=== PATIENT | female | born 1960 | race Caucasian/White ===

== ENCOUNTER → 2017-08-22 | Outpatient (CLI) | payer OTHER, MEDICARE ==
[~2017-08-22] MED LIST: CELEBREX 100MG100 MG PO; DILAUDID2 MG PO; IRON TABLETS325 MG PO; MULTI VITAMINS1 TAB PO; NOMEDS; PREMARIN1.25 MG PO; PREMPRO 0.3 MG-1 TAB PO
--- NOTE | 2017-08-31 11:42 | RADIOLOGY REPORT PS360 ---
DIG MAMM-DX WHIT W/CAD ORDERING PHYSICIAN : Cisco Styles MD PATIENT AGE: 57 years GENDER: Female COMPARISON: March, January 2015, May right mammogram at time of biopsy HISTORY: Prior ultrasound-guided 16-gauge core reveal area of fat necrosis fibrocystic change biopsy of 10:00 right breast TECHNIQUE: Std CC & MLO images were obtained. Along with axillary cc view both breast R2 CAD reviewed. FINDINGS: . Patient has stable asymmetric areas of density.. No new findings. No dominant mass nor suspicious calcifications. RIGHT BREAST: Metallic marker clip from last years ultrasound guided biopsy is noted at the 10:00. Minimal density here from biopsy but no significant new features. Scattered areas of density otherwise seen right breast appear similar to prior studies. There are there are numerous scattered new round punctate dense calcifications throughout upper-outer quadrant right breast. Some may be compatible with dermal or possibly post biopsy type calcification.-Most are scattered but there is a small area labeled X and other labeled Y laterally which are is loosely grouped. Because of this suggest a follow-up right mammogram in 6 months to confirm stability of these most likely benign calcifications Small Focal area of density medial and inferior right breast have remained stable. LEFT BREAST:. No discrete new findings at the left breast. Follow up one year recommended IMPRESSION: . RIGHT BREAST: Scattered new punctate calcifications throughout upper-outer quadrant left breast. One small area benign-appearing calcifications loosely grouped. Strongly favor these are all benign punctate calcifications but would suggest 6 month follow-up most feasible to further confirm.. Metallic marker just anterior to these calcifications from interval ultrasound biopsy evident right breast. LEFT BREAST. No significant new findings. Follow-up one year bilaterally recommended BI-RADS CATEGORY: 3_Probably Benign-Short Term F/U RECOMMENDED FOLLOWUP: 6M 6MONTH FOLLOW-UP RIGHT BREAST (A letter has been sent to the patient regarding results of the study.)
== END ==
LOC: RAD 08:17
DX: R92.8 Other abnormal and inconclusive findings on diagnostic imaging of breast (principal)
CPT/HCPCS: G0204

== ENCOUNTER 2017-09-22 09:30 | Day surgery (SDC) | payer OTHER, MEDICARE ==
--- NOTE | 2017-09-22 11:40 | Operative Note ---
Surgeon/Diagnoses Surgeon/Landscape Painter(s) Date of procedure: 09/22/17 Surgeon: MD Missy Alfredo Diagnoses Pre-op diagnosis: History of colon polyps Post-op diagnosis History of colon polyps Sigmoid diverticulosis Hemorrhoidal cushions Focal colitis of ileocecal valve Procedure Procedure Procedure: Colonoscopy with biopsy Indications: BELLE MURILLO is a 57 year-old Female with a history of colon polyps. She states that she is "at least 5 years out" from her last colonoscopy. She is uncertain with regard to the number polyps she has had removed. Findings: Bowel preparation moderate with large volume irrigation and suctioning used to somewhat improved visualization Fairly mild hemorrhoidal cushions with no active bleeding or thrombosis Significant lack of relaxation and fairly severe spasticity of colon Sigmoid diverticulosis Focal inflammation and around ileocecal valve Procedure Description: After informed consent was obtained, the patient was taken to the endoscopy suite. IV sedation ensued after she was transferred to the LEFT lateral decubitus position. Digital rectal exam revealed some hemorrhoidal cushions. The colonoscope was placed in position. The entire colon was evaluated. Bowel preparation was moderate with large volume irrigation and suctioning used to somewhat improved visualization. Lack of relaxation was significant throughout the colon. Fairly severe spasticity was encountered. Sigmoid diverticulosis was seen. Focal inflammation of the ileocecal valve was noted and biopsies were obtained. No additional mucosal lesions were seen. The colonoscope was carefully removed and the patient was transferred to recovery. EBL (ml): 1 Anesthesia: IV sedation with 9 mg of Versed and 200 g of fentanyl Complications: No immediate Specimens: Ileocecal valve biopsy Disposition Disposition: Stable to recovery from where she will be discharged home. She will follow-up in one week. Consideration of barium enema secondary to significant lack of relaxation is warranted. Repeat colonoscopy is pending pathology and possible barium enema but will likely be in less than 3 years secondary to visualization difficulties. Special consideration with regard to the biopsies of the ileocecal valve is necessary as if there are adenomatous changes this warrants very close reevaluation and possible resection. at 1980
[2017-09-22 15:19] VITALS: BP 135/76
== END 2017-09-22 12:00 | disposition home or self-care (01) ==
LOC: SDC 09:30
PROVIDERS: Surgery
PROC: 0DBC8ZX Excision of Ileocecal Valve, Via Natural or Artificial Opening Endoscopic, Diagnostic (ICD-10-PCS; principal; 2017-09-22 10:00)
DX: Z09 Encounter for follow-up examination after completed treatment for conditions other than malignant neoplasm (principal); Z86.010 Personal history of colon polyps; K57.90 Diverticulosis of intestine, part unspecified, without perforation or abscess without bleeding; K52.9 Noninfective gastroenteritis and colitis, unspecified